=== PATIENT | female | born 1965 | race Caucasian/White ===

== ENCOUNTER 2017-03-05 12:52 | Emergency (ER) | payer MEDICAID ==
[~2017-03-05] VITALS: Ht 172.7 cm; Wt 111.6 kg
[~2017-03-05 12:52] MED LIST: ADVITAB PO; FISH500C PO; VITA-83 PO; VITA400C28 PO; VITA500T49 PO
[2017-03-05 13:04] VITALS: BP 114/72; PULSE 97; RESP 16; TEMP 99; O2SAT 97
[2017-03-05] MEDS ORDERED: PRED5TAB PO (13:31)
[2017-03-05] MEDS ORDERED: ZOFR4TAB PO (13:31)
[2017-03-05] MEDS ORDERED: BENZ100 PO (13:31)
--- NOTE | 2017-03-05 13:31 | PD ---
HPI Chief Complaint: Cold / Flu Symptoms Time Seen by Provider: 13:25 Travel History International Travel<30 days: No Contact w/Intl Traveler<30days: No Traveled to known affect area: No History of Present Illness HPI 51-year-old female presents to the emergency department complaining of head cold , cough, subjective fevers, and nonbloody vomiting since Saturday. States she has also had clear rhinorrhea. States she normally is not sick and is concerned that there is a serious infection. In addition, patient states that she has had sinus pressure and pain in her back and middle of the chest with coughing . She denies shortness of breath or pain with inspiration. Denies nausea or diarrhea. Denies any sick contacts. 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 PFSH Past Medical History Medical History: Denies Significant Hx Cancer: No Cardiovascular Problems: No Diabetes: No Diminished Hearing: No Endocrine: No Hepatitis: No Hiatal Hernia: No Immune Disorder: No Musculoskeletal: No Neurologic: No Psychiatric: No Reproductive: Yes Respiratory: No Thyroid Disease: No Influenza Vaccination: No ?: Not : 3 Para: 3 : 0 Dilation and Curettage (D&C): Yes Past Surgical History Gynecologic Surgery: Yes (LEEP PROCEDURE,D&C) Social History Alcohol Use: No Tobacco Use: No Substance Use: No Allergies-Medications (Allergen,Severity, Reaction): Coded Allergies: sulfamethoxazole (Unverified Allergy, Severe, Hives, 03/05/17) PUTS HER IN THE HOSPITAL trimethoprim (Unverified Allergy, Severe, Hives, 03/05/17) PUTS HER IN THE HOSPITAL Reported Meds & Prescriptions Reported Meds & Active Scripts Active Zofran (Ondansetron HCl) 4 Mg Tab 4 Mg PO Q8HR PRN 3 Days Prednisone 5 Mg Tab 5 Mg PO DAILY 7 Days Tessalon Perles (Benzonatate) 100 Mg Cap 100 Mg PO TID PRN 3 Days Review of Systems Except as stated in HPI: all other systems reviewed are Neg Physical Exam Narrative GENERAL: Well-nourished, well-developed patient. SKIN: Focused skin assessment warm/dry. HEAD: Normocephalic. EYES: No scleral icterus. No injection or drainage. NECK: Supple, trachea midline. No JVD or lymphadenopathy. CARDIOVASCULAR: Regular rate and rhythm without murmurs, gallops, or rubs. RESPIRATORY: Breath sounds equal bilaterally. No accessory muscle use. GASTROINTESTINAL: Abdomen soft, non-tender, nondistended. No masses or organomegaly MUSCULOSKELETAL: No cyanosis, or edema. Mild tenderness palpation to the paraspinous muscles lumbar region BACK: Nontender without obvious deformity. No CVA tenderness. Data Data Last Documented VS Vital Signs Date Time Temp Pulse Resp B/P (MAP) Pulse Ox O2 Delivery O2 Flow Rate FiO2 03/05/17 13:04 99.0 97 16 114/72 (86) 97 Orders Orders Ed Discharge Order (03/05/17 13:31) [facility] Medical Decision Making Medical Screen Exam Complete: Yes Emergency Medical Condition: Yes Differential Diagnosis Influenza, viral syndrome, upper respiratory infection, Narrative Course 51-year-old female presents to the emergency department complaining of head cold , cough, subjective fevers, and nonbloody vomiting since Saturday. States she has also had clear rhinorrhea. States she normally is not sick and is concerned that there is a serious infection. In addition, patient states that she has had sinus pressure and pain in her back and middle of the chest with coughing . She denies shortness of breath or pain with inspiration. Denies nausea or diarrhea. Denies any sick contacts. 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 Denies chronic medication use or medical conditions. Denies history of abdominal surgeries. Vital signs stable. Physical exam consistent with a viral syndrome. I offered the patient influenza testing along with a chest x-ray. Advised that my physical exam findings were consistent with a viral syndrome and I did not hear any abnormalities on auscultation today. Advised that even if she had the flu, patient is outside the window of Tamiflu. Patient agreed to wait and would like symptomatic relief. Patient prescribed prednisone for the sinus pressure, Zofran for occasional nausea, and Tessalon Perles for the cough. Patient advised follow-up with her primary care physician within 2-3 days. Return to the emergency for worsening or persistent symptoms. Diagnosis Primary Impression: Viral syndrome Referrals: Primary Care Physician Additional Instructions: Follow up with your primary care physician within 2-3 days. If your symptoms persist or worsen, return to the emergency department. Take medication as prescribed. Scripts Ondansetron (Zofran) 4 Mg Tab 4 MG PO Q8HR Y for NAUSEA OR VOMITING for 3 Days, TAB 0 Refills Prov: Justice,Akanksha PA 03/05/17 Prednisone (Prednisone) 5 Mg Tab 5 MG PO DAILY for 7 Days, #7 TAB 0 Refills Prov: Akanksha Massey 03/05/17 Benzonatate (Tessalon Perles) 100 Mg Cap 100 MG PO TID Y for COUGH for 3 Days, CAP 0 Refills Prov: Akanksha Massey 03/05/17 Disposition: 01 DISCHARGE HOME Condition: Stable Akanksha Massey Mar 05, 2017 13:31
== END 2017-03-05 13:39 | disposition home or self-care (01) ==
LOC: PHEFT 12:52
DX: B34.9 Viral infection, unspecified (principal); Z79.899 Other long term (current) drug therapy; Z88.2 Allergy status to sulfonamides; Z88.8 Allergy status to other drugs, medicaments and biological substances
CPT/HCPCS: 99284